=== PATIENT | female | born 1990 | race American Indian/Alaskan Native ===

== ENCOUNTER 2017-03-14 11:11 | Outpatient (CLI) | payer BC, MEDICAID ==
[2017-03-14 11:28] VITALS: BP 131/80
== END 2017-03-14 12:54 | disposition home or self-care (01) ==
LOC: TRG 11:11
PROVIDERS: ATTEND Obstetrics & Gynecology
DX: Z34.93 Encounter for supervision of normal pregnancy, unspecified, third trimester (principal); Z3A.39 39 weeks gestation of pregnancy

== ENCOUNTER 2017-03-15 21:10 | Inpatient (IN) | payer BC ==
[2017-03-15] MEDS ORDERED: PITOCin/NS 20 UNIT/1000ML DRIP 20,000 MILLIUNITS/1,000 ML BAG IV ONE (21:30)
[2017-03-15] MEDS ORDERED: METHERGINE IM ONE ×2 (21:36→22:03)
--- NOTE | 2017-03-15 21:41 | Event Note ---
Date: 03/15/17 Called emergently to the room for patient in labor . Normal vaginal delivery over intact perineum. Mother and in stable condition
--- NOTE | 2017-03-15 21:43 | Procedure Note ---
OB Delivery Note - Delivery Date of Delivery: 03/15/17 Surgeon: KRAIG MCKNIGHT Estimated blood loss: 300cc - Vaginal Delivery presentation: vertex Delivery position: OA Intrapartum events: precipitous labor- <3hr Delivery induction: none Delivery monitor: external FHT Route of delivery: Delivery placenta: spontaneous Episiotomy: none Delivery laceration: 1st degree (not repaired) Anesthesia: none - A at 1 minute: 8 at 5 minutes: 9 Gender: Male (time of delivery 21:21, weight was 7 lbs. 5 oz. or 3306 g)
[2017-03-15] MEDS ORDERED: PITOCin/NS 30 UNIT/500ML 30 UNITS/500 ML BAG IV SCH (22:00)
--- NOTE | 2017-03-15 22:02 | History and Physical Report ---
History of Present Illness Date of examination: 03/15/17 Date of admission: 03/15/17 21:10 History of present illness: 26 yo EDC 03/17/17 @ 39.5 weeks gestation presented to triage C/C and pushing for precipitious viable male at 2120. care uncomplicated and GBS negative. Voiced contractions started yesterday and remained irregular until she felt the urge to push. SROM immediately unpon leaving the house for L&D. Last vaginal exam yesterday, she was 1cm. Past History Past Medical History: no pertinent history Past Surgical History: no surgical history Social history: no significant social history, - Obstetrical History Expected Date of Delivery: 03/17/17 Actual Gestation: 39 Week(s) 5 Day(s) : 2 Para: 1 Number of Living Children: 1 Medications and Allergies Allergies Allergy/AdvReac Type Severity Reaction Status Date / Time No Known Allergies Allergy Unverified 11/23/14 19:57 Home Medications Medication Instructions Recorded Confirmed Last Taken Type Acetaminophen/Codeine [Tylenol #3] 1 tab PO Q4HR PRN #30 tablet 11/26/14 Unknown Rx Ibuprofen [Motrin 600 MG tab] 600 mg PO Q6H #30 tablet 11/26/14 Unknown Rx Review of Systems All systems: negative Genitourinary: normal appearance, vaginal bleeding (scant), leakage of fluid, contractions - Vital Signs Vital signs: Vital Signs Pulse BP 90 115/56 03/15/17 21:39 03/15/17 21:39 Temp Pulse Resp BP Pulse Ox 90 126/64 100 03/15/17 21:55 03/15/17 21:54 03/15/17 21:55 - Physical Exam Abdomen: Positive: normal appearance, other (FF @ U, ML) Genitourinary (Female): Positive: normal external genitalia, other (1st degree laceration, hemostatic, not repaired) Results All other labs normal. Assessment and Plan A: Stable s/p precipitious viable male at 2120 P: Third Stage Labor
[2017-03-15] MEDS ORDERED: MINERAL OIL PO PRN (22:03)
[2017-03-15] MEDS ORDERED: BRETHINE IVP PRN (22:03)
[2017-03-15] MEDS ORDERED: ePHEDrine SULFATE IV PRN (22:03)
[2017-03-15] MEDS ORDERED: BRETHINE SUB-Q PRN (22:03)
[2017-03-15] MEDS ORDERED: PHENERGAN PO PRN (22:05)
[2017-03-15] MEDS ORDERED: TUCKS PAD TP PRN (22:05)
[2017-03-15] MEDS ORDERED: BENADRYL PO PRN (22:05)
[2017-03-15] MEDS ORDERED: PHENERGAN PR PRN (22:05)
[2017-03-15] MEDS ORDERED: LANSINOH TP PRN (22:05)
[2017-03-15] MEDS ORDERED: DULCOLAX PR PRN (22:05)
[2017-03-15] MEDS ORDERED: NORCO 5/325 PO PRN (22:05)
[2017-03-15] MEDS ORDERED: TYLENOL PO PRN (22:05)
[2017-03-15 22:10] LABS: Hematocrit 39.4 % (30.3-42.9); Hemoglobin 13.8 gm/dl (10.1-14.3); Mean Corpuscular HGB Conc 35 % (30-34); Mean Corpuscular Hemoglobin 33 pg (28-32); Mean Corpuscular Volume 94 fl (79-97); Platelet Count 208 K/mm3 (140-440); Red Blood Count 4.21 M/mm3 (3.65-5.03); Red Cell Distribution Width 13.5 % (13.2-15.2); White Blood Count 13.8 K/mm3 (4.5-11.0)
[2017-03-15] MEDS ORDERED: LACTATED RINGERS 1,000 ML IV SCH (23:00)
[2017-03-15] MEDS ORDERED: PITOCin/NS 20 UNIT/1000ML DRIP 20 UNITS/1,000 ML BAG IV SCH (23:00)
[2017-03-15] MEDS ORDERED: SODIUM CHLORIDE FLUSH SYRINGE 10 ML IV PRN (23:00)
[2017-03-15] MEDS: MOTRIN PO SCH (23:34)
[2017-03-16] MEDS: MOTRIN PO SCH (05:37)
--- NOTE | 2017-03-16 08:30 | Progress Note ---
Assessment and Plan A/P PPD #1 s/p precipitous no complaints bleeding decreasing tolerating diet ambulating well continue routine PP Subjective - Subjective Date of service: 03/16/17 Principal diagnosis: s/p precipitous Patient reports: appetite normal, voiding normally, pain well controlled, flatus , ambulating normally : doing well Objective - Vital Signs Latest vital signs: Vital Signs Temp Pulse Resp BP BP Pulse Ox 03/16/17 04:29 98.9 F 82 20 104/59 03/15/17 23:46 98.4 F 75 16 114/71 03/15/17 22:54 69 120/70 03/15/17 22:50 84 98 03/15/17 22:45 79 97 03/15/17 22:40 74 97 03/15/17 22:39 80 117/61 03/15/17 22:35 88 97 03/15/17 22:30 83 97 03/15/17 22:25 81 98 03/15/17 22:24 83 116/66 03/15/17 22:20 79 98 03/15/17 22:15 84 99 03/15/17 22:10 81 99 03/15/17 22:09 73 120/62 03/15/17 22:05 83 99 03/15/17 22:00 87 99 03/15/17 21:55 90 100 03/15/17 21:54 95 H 126/64 03/15/17 21:50 94 H 100 03/15/17 21:45 87 99 03/15/17 21:40 98.0 F 20 03/15/17 21:39 90 115/56 Intake and Output 03/15/17 03/16/17 03/16/17 23:59 07:59 15:59 Intake Total 200 Output Total 300 500 Balance -300 -300 Intake: Oral 200 Output: Urine 300 500 Void 300 500 Other: Total, Intake Amount 200 Total, Output Amount 300 500 Weight 79.832 kg Estimated Blood Loss 300 - Exam Breasts: Present: normal Cardiovascular: Present: Regular rate, Normal S1 Lungs: Present: Clear to auscultation, Normal air movement Abdomen: Present: normal appearance, soft, normal bowel sounds. Absent: distention, tenderness, guarding Vulva: both: normal Uterus: Present: normal, firm, fundal height below umbilicus. Absent: bogginess , tenderness Extremities: Present: normal Deep Tendon Reflex Grade: Normal +2 - Labs Labs: Abnormal lab results 03/15/17 Range/Units 21:25 WBC 13.8 H (4.5-11.0) K/mm3 MCH 33 H (28-32) pg MCHC 35 H (30-34) %
--- NOTE | 2017-03-16 08:39 | Discharge Summary ---
Providers - Providers Date of Admission: 03/15/17 21:10 Date of discharge: 03/17/17 Attending physician: GABBIE LIRA Primary care physician: GABBIE LIRA Hospitalization Reason for admission: active labor Delivery: Episiotomy: none Laceration: 1st degree (not repaired) Other procedures: none complications: none baby: male Hospital course: patient had a precipitous delivery. male infant 1st degree lac. Doing well. d/c home PPD #2 Condition at discharge: Good Disposition: DC-01 TO HOME OR SELFCARE Plan - Discharge Medications Prescriptions: HYDROcodone/APAP 5-325 [[place] 5/325] 1 each PO Q6HR PRN #30 tablet PRN Reason: Pain Ibuprofen [Motrin] 600 mg PO Q8H PRN #30 tablet PRN Reason: Pain - Provider Discharge Summary Activity: routine, no sex for 6 weeks, no strenuous exercise Diet: routine Instructions: routine Additional instructions: [] Smoking cessation referral if applicable(refer to patient education folder for contact #) [] Refer to [facility]'s [facility] Booklet Call your doctor immediately for: * Fever > 100.5 * Heavy vaginal bleeding ( >1 pad per hour) * Severe persistent headache * Shortness of breath * Reddened, hot, painful area to leg or breast * Drainage or odor from incision. * Keep incision clean and dry at all times and follow doctor's instructions regarding bathing/showering - Follow up plan Follow up: GABBIE LIRA MD [Primary Care Provider] - 04/12/17
[2017-03-16] MEDS ORDERED: PRENATAL VITAMIN PO SCH (10:00)
[2017-03-16 10:59] LABS: Hematocrit 34.2 % (30.3-42.9); Hemoglobin 11.6 gm/dl (10.1-14.3)
[2017-03-16] MEDS ORDERED: M-M-R II VACCINE SUB-Q ONE (22:05)
[2017-03-17] MEDS: MOTRIN PO SCH ×3 (00:07→12:52)
[2017-03-17 09:21] VITALS: BP 103/58
== END 2017-03-17 15:00 | disposition home or self-care (01) | DRG 775 ==
LOC: LD 21:10 → OB 23:30
PROVIDERS: ADMIT Obstetrics & Gynecology; ATTEND Obstetrics & Gynecology
PROC: 10E0XZZ Delivery of Products of Conception, External Approach (ICD-10-PCS; principal; 2017-03-15)
DX: O62.3 Precipitate labor (principal); Z3A.39 39 weeks gestation of pregnancy; Z37.0 Single live birth; O70.0 First degree perineal laceration during delivery
CPT/HCPCS: 36415; 85014; 85018; 85027; 86592; 86850; 86900; 86901; 99211; G0463; J2210; J2590

== ENCOUNTER 2020-09-29 17:00 | Inpatient (IN) | payer BC ==
[2020-09-29] MEDS ORDERED: LACTATED RINGERS 1,000 ML ONE (19:22)
[2020-09-29 19:42] LABS: Hematocrit 36.1 % (30.3-42.9); Hemoglobin 12.6 gm/dl (10.1-14.3); Mean Corpuscular HGB Conc 35 % (30-34); Mean Corpuscular Volume 94 fl (79-97); Platelet Count 201 K/mm3 (140-440); Red Blood Count 3.84 M/mm3 (3.65-5.03)
[2020-09-29] MEDS ORDERED: MINERAL OIL 30 ML ORAL LIQD PO PRN (20:25)
[2020-09-29] MEDS ORDERED: ePHEDrine SULFATE 50 MG/1 ML INJ IV PRN (20:25)
[2020-09-29] MEDS ORDERED: DINOPROSTONE 10 MG VAG SUPP VG ONE (20:25)
[2020-09-29] MEDS ORDERED: LIDOCAINE (2%) 20 MG/1 ML VIAL 20 ML MDV INFILTRATI ONE (20:25)
[2020-09-29] MEDS ORDERED: TERBUTALINE 1 MG/1 ML INJ SUB-Q PRN (20:25)
[2020-09-29] MEDS ORDERED: OXYTOCIN DRIP 30 UNITS/500 ML BAG IV SCH ×2 (21:00)
--- NOTE | 2020-09-29 21:57 | History and Physical Report ---
History of Present Illness Date of examination: 09/29/20 Chief complaint: decreased movement History of present illness: 29yo at 40w1d, initiated care at 11.1 wks gestation. has been complicated by anemia, sickle cell trait, and 22q11 deletion syndrome. She presents to [facility] from clinic due to symptoms of severe pain and decreased movement. Denies VB or LOF. Labs: O+, antibody negative; rubella immune; VDRL non-reactive; urine culture negative; HBsAg negtive; HSV-2 negative; Gc/Chlamydia/Trich negative; 1hr gtt - 84; GBS negative. Past History Past Medical History: no pertinent history, other (sickle cell trait) Past Surgical History: no surgical history Family/Genetic History: diabetes, hypertension - Obstetrical History Expected Date of Delivery: 09/28/20 Actual Gestation: 40 Week(s) 2 Day(s) : 3 Number of Living Children: 2 Medications and Allergies Allergies Allergy/AdvReac Type Severity Reaction Status Date / Time No Known Allergies Allergy Verified 09/29/20 19:39 Home Medications Medication Instructions Recorded Confirmed Last Taken Type Acetaminophen/Codeine [Tylenol #3] 1 tab PO Q4HR PRN #30 tablet 11/26/14 09/29/20 Unknown Rx Ibuprofen [Motrin 600 MG tab] 600 mg PO Q6H #30 tablet 11/26/14 09/29/20 Unknown Rx HYDROcodone/APAP 5-325 [[place] 1 each PO Q6HR PRN #30 tablet 03/16/17 09/29/20 Unknown Rx 5/325] Ibuprofen [Motrin] 600 mg PO Q8H PRN #30 tablet 03/16/17 09/29/20 Unknown Rx One Daily Tablet 1 tab PO DAILY 09/29/20 09/29/20 09/28/20 History 1 Active Meds: Active Medications Ephedrine Sulfate (Ephedrine Sulfate 50 Mg/1 Ml Inj) 10 mg IV Q2M PRN PRN Reason: Hypotension Oxytocin/Sodium Chloride (Pitocin/Ns 30 Unit/500ml) 30 units in 500 mls @ 2 mls/hr IV TITR WILL; Protocol Lactated Ringer's (Lactated Ringers) 1,000 mls @ 125 mls/hr IV DIRECT WILL Oxytocin/Sodium Chloride (Pitocin/Ns 30 Unit/500ml) 30 units in 500 mls @ 40 mls/hr IV TITR WILL; Protocol Mineral Oil (Mineral Oil 30 Ml Oral Liqd) 30 ml PO QHS PRN PRN Reason: Constipation Terbutaline Sulfate (Terbutaline 1 Mg/1 Ml Inj) 0.25 mg SUB-Q ONCE PRN PRN Reason: Hyperstimulation/Hypertonicity Review of Systems Gastrointestinal: other (flank pain) - Vital Signs Vital signs: Vital Signs Pulse Pulse Ox 98 H 98 09/29/20 17:39 09/29/20 17:39 Temp Pulse Resp BP Pulse Ox 97.8 F 76 20 128/70 98 09/29/20 19:06 09/29/20 21:49 09/29/20 19:06 09/29/20 17:42 09/29/20 21:49 - Physical Exam Cardiovascular: Regular rate Lungs: Positive: Clear to auscultation Abdomen: Positive: normal appearance Genitourinary (Female): Positive: normal external genitalia Uterus: Positive: other (gravid) - Obstetrical FHR: category 1 FHR comments: 130 Cervical Dilatation: 1 station: -3 Uterine Contraction Pattern: Irregular Uterine Contraction Intensity: Mild Results Result Diagrams: 09/29/20 19:16 Abnormal lab results 09/29/20 Range/Units 19:16 MCH 33 H (28-32) pg MCHC 35 H (30-34) % All other labs normal. 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
[2020-09-30] MEDS ORDERED: ACETAMINOPHEN 500 MG TAB PO PRN (00:13)
[2020-09-30] MEDS: LACTATED RINGERS 1,000 ML IV SCH ×3 (03:50→22:05)
--- NOTE | 2020-09-30 18:44 | Progress Note ---
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 has been complicated by anemia, sickle cell trait, and 22q11 deletion syndrome. She presents to [facility] from clinic due to symptoms of severe pain and decreased movement. Denies VB or LOF. Labs: O+, antibody negative; rubella immune; VDRL non-reactive; urine culture negative; HBsAg negtive; HSV-2 negative; Gc/Chlamydia/Trich negative; 1hr gtt - 84; GBS negative. Patient reports: new complaints, loss of fluid, movement normal, contractions, no vaginal bleeding Objective - Vital Signs Vital Signs: Vital Signs - 12hr 09/30/20 09/30/20 09/30/20 06:44 06:49 06:54 Temperature Pulse Rate 72 77 72 Respiratory Rate Blood Pressure Blood Pressure [Left] O2 Sat by Pulse 99 99 99 Oximetry 09/30/20 09/30/20 09/30/20 06:59 07:04 07:09 Temperature Pulse Rate 70 76 74 Respiratory Rate Blood Pressure Blood Pressure [Left] O2 Sat by Pulse 100 99 99 Oximetry 09/30/20 09/30/20 09/30/20 07:14 07:19 07:24 Temperature Pulse Rate 73 70 70 Respiratory Rate Blood Pressure Blood Pressure [Left] O2 Sat by Pulse 99 99 99 Oximetry 09/30/20 09/30/20 09/30/20 07:29 07:34 07:39 Temperature Pulse Rate 75 75 75 Respiratory Rate Blood Pressure Blood Pressure [Left] O2 Sat by Pulse 99 99 99 Oximetry 09/30/20 09/30/20 09/30/20 07:44 07:49 07:54 Temperature Pulse Rate 76 74 78 Respiratory Rate Blood Pressure Blood Pressure [Left] O2 Sat by Pulse 99 98 98 Oximetry 09/30/20 09/30/20 09/30/20 07:59 08:04 08:09 Temperature Pulse Rate 72 70 74 Respiratory Rate Blood Pressure Blood Pressure [Left] O2 Sat by Pulse 99 100 98 Oximetry 09/30/20 09/30/20 09/30/20 08:14 08:19 08:24 Temperature Pulse Rate 75 73 70 Respiratory Rate Blood Pressure Blood Pressure [Left] O2 Sat by Pulse 98 98 100 Oximetry 09/30/20 09/30/20 09/30/20 08:29 08:34 08:39 Temperature Pulse Rate 76 70 73 Respiratory Rate Blood Pressure Blood Pressure [Left] O2 Sat by Pulse 98 98 99 Oximetry 09/30/20 09/30/20 09/30/20 08:44 08:48 08:49 Temperature 98.0 F Pulse Rate 66 79 76 Respiratory 18 Rate Blood Pressure Blood Pressure 109/71 [Left] O2 Sat by Pulse 100 100 Oximetry 09/30/20 09/30/20 09/30/20 08:52 08:54 08:59 Temperature Pulse Rate 80 77 80 Respiratory Rate Blood Pressure 109/71 Blood Pressure [Left] O2 Sat by Pulse 100 98 Oximetry 09/30/20 09/30/20 09/30/20 09:04 09:21 09:26 Temperature Pulse Rate 81 75 81 Respiratory Rate Blood Pressure Blood Pressure [Left] O2 Sat by Pulse 99 100 100 Oximetry 09/30/20 09/30/20 09/30/20 09:31 09:36 09:41 Temperature Pulse Rate 75 76 84 Respiratory Rate Blood Pressure Blood Pressure [Left] O2 Sat by Pulse 100 100 100 Oximetry - Exam Breasts: deferred Cardiovascular: Regular rate Lungs: Normal air movement FHR: category 1 Uterine Contraction Monitor Mode: External (Eda) Cervical Dilatation: 4.5 (vertex) Cervical Effacement Percentage: 60 (Pitocin @ 4mu/min) station: -3 Uterine Contraction Frequency (min): 2-4 Uterine Contraction Pattern: Irregular Uterine Tone Measurement Phase: Resting Uterine Contraction Intensity: Moderate Extremities: normal - Labs Labs: Abnormal Labs 09/29/20 19:16 MCH 33 H MCHC 35 H Laboratory Results - last 24 hr 09/29/20 09/29/20 09/29/20 19:16 19:16 20:30 WBC 7.1 RBC 3.84 Hgb 12.6 Hct 36.1 MCV 94 MCH 33 H MCHC 35 H RDW 14.0 Plt Count 201 Syphilis IgG Antibody Nonreactive Coronavirus (PCR) Blood Type O POSITIVE Antibody Screen Negative 09/30/20 08:37 WBC RBC Hgb Hct MCV MCH MCHC RDW Plt Count Syphilis IgG Antibody Coronavirus (PCR) Negative Blood Type Antibody Screen
[2020-09-30] MEDS: BUTORPHANOL 2 MG/1 ML INJ IV PRN (21:08)
[2020-10-01] MEDS: BUTORPHANOL 2 MG/1 ML INJ IV PRN (01:02)
[2020-10-01] MEDS ORDERED: MAGNESIUM HYDROXIDE (MOM) ORAL LIQD UDC PO PRN (01:06)
[2020-10-01] MEDS ORDERED: WITCH HAZEL/ GLYCERIN PAD TP PRN (01:06)
[2020-10-01] MEDS ORDERED: diphenhydrAMINE 25 MG CAP PO PRN (01:06)
[2020-10-01] MEDS ORDERED: LANOLIN/ZINC/DIMETHICONE (LANSINOH) 7 GM TP PRN (01:06)
[2020-10-01] MEDS ORDERED: ACETAMINOPHEN 325 MG TAB PO PRN (01:06)
[2020-10-01] MEDS ORDERED: PROMETHAZINE 25 MG TAB PO PRN (01:06)
[2020-10-01] MEDS ORDERED: ONDANSETRON 4 MG/2 ML INJ IV PRN (01:06)
--- NOTE | 2020-10-01 01:15 | Procedure Note ---
OB Delivery Note - Delivery Date of Delivery: 10/01/20 (0049) Surgeon: IRINEO NOLASCO (CNM) Estimated blood loss: 300cc - Vaginal Delivery presentation: vertex Delivery position: OA (DAVID) Delivery induction: oxytocin Delivery augmentation: rupture of membranes (SROM - 1525 on 09/30/20, clear) Delivery monitor: external FHT, external uterine Route of delivery: Delivery placenta: spontaneous (52) Delivery cord: 3 umbilical vessels Episiotomy: none Delivery laceration: none Anesthesia: none Delivery comments: of viable, quiet, slightly stunned placed directly to maternal abdomen. NICU at bedside for delivery. Cord double clamped and cut by myself and immediately handed over to awaiting NICU team for evaluation. Cord blood collected, sent to lab. Uterus firm @ U-3, hemostasis maintained. Perineum intact. Mother stable, safe and left in care of RN. transported to NICU accompanied by FOB. - A at 1 minute: 8 at 5 minutes: 8 Infant Gender: Male (Weight: 3445 gms (7lbs 10ozs) 20 inches)
[2020-10-01] MEDS: IBUPROFEN 600 MG TAB PO SCH ×3 (06:23→17:44)
--- NOTE | 2020-10-01 08:58 | Progress Note ---
Assessment and Plan - Patient Problems (1) Vaginal delivery Current Visit: Yes Status: Acute Plan to address problem: patient doing well Subjective - Subjective Date of service: 10/01/20 Principal diagnosis: IOL Interval history: Patient feels tired from the delivery. Pain well controlled Patient reports: appetite normal, voiding normally, pain well controlled [place]: doing well Objective - Vital Signs Latest vital signs: Vital Signs Temp Pulse Resp BP BP Pulse Ox 10/01/20 03:15 98.1 F 68 16 107/63 99 10/01/20 02:30 97.7 F 10/01/20 02:23 64 124/72 10/01/20 02:08 66 123/64 10/01/20 01:52 179 H 142/77 10/01/20 00:54 78 122/56 10/01/20 00:41 85 139/63 10/01/20 00:38 98 H 99 10/01/20 00:33 121 H 94 10/01/20 00:32 83 92 10/01/20 00:28 123 H 99 10/01/20 00:24 78 92 10/01/20 00:23 77 97 09/30/20 23:15 97.1 F L 73 116/64 09/30/20 19:15 97.9 F 82 18 134/77 09/30/20 19:11 82 134/77 09/30/20 11:23 69 L 09/30/20 09:41 84 100 09/30/20 09:36 76 100 09/30/20 09:31 75 100 09/30/20 09:26 81 100 09/30/20 09:21 75 100 09/30/20 09:04 81 99 09/30/20 08:59 80 98 Intake and Output 09/30/20 10/01/20 10/01/20 22:59 06:59 14:59 Intake Total 1042.967 Output Total 600 Balance 1042.967 -600 Intake: IV 1042.967 Lactated Ringers 1,000 ml 1000 @ 125 mls/hr IV DIRECT WILL Rx#:[id number] PITOCin/NS 30 UNIT/500ML 42.967 30 units In 500 ml @ 2 mls/hr IV TITR WILL Rx#: [id number] Output: Urine 600 Void 600 Other: Total, Output Amount 600 # Voids Void 1 Estimated Blood Loss 300
[2020-10-01] MEDS: PRENATAL VIT27-FE FUMARATE-FOLIC ACID VIT TAB PO SCH (10:19)
[2020-10-01 13:31] LABS: Hematocrit 32.6 % (30.3-42.9)
[2020-10-02] MEDS: IBUPROFEN 600 MG TAB PO SCH ×3 (07:29→12:20)
[2020-10-02] MEDS: PRENATAL VIT27-FE FUMARATE-FOLIC ACID VIT TAB PO SCH (10:23)
--- NOTE | 2020-10-02 11:04 | Progress Note ---
Assessment and Plan - Patient Problems (1) Vaginal delivery Current Visit: Yes Status: Acute Plan to address problem: discharge home patient doing well Subjective - Subjective Date of service: 10/02/20 Principal diagnosis: IOL Interval history: Patient doing well. No complaints Patient reports: appetite normal, voiding normally, pain well controlled : doing well Objective - Vital Signs Latest vital signs: Vital Signs Temp Pulse Resp BP Pulse Ox 10/02/20 01:07 98.3 F 82 20 106/59 98 10/01/20 17:34 98.2 F 85 18 106/69 100 Intake and Output 10/01/20 10/02/20 10/02/20 22:59 06:59 14:59 Other: # Voids Void 1
--- NOTE | 2020-10-02 11:05 | Discharge Summary ---
Providers - Providers Date of Admission: 09/29/20 20:25 Date of discharge: 10/02/20 Attending physician: DANIEL REAGAN MD Primary care physician: DANIEL REAGAN MD Hospitalization Reason for admission: induction of labor Delivery: Discharge diagnosis: IUP at term delivered Hospital course: Patient admitted for decreased movement. Had . uncomplicated Condition at discharge: Good Disposition: DC-01 TO HOME OR SELFCARE - Discharge Diagnoses (1) Vaginal delivery Status: Acute Plan - Discharge Medications Prescriptions: Ibuprofen [Motrin] 800 mg PO Q8HR PRN #30 tablet PRN Reason: Pain , Severe (7-10) HYDROcodone/APAP 5-325 [[place] 5/325] 1 each PO Q6HR PRN #15 tablet PRN Reason: Pain - Provider Discharge Summary Activity: no sex for 6 weeks, no heavy lifting 4 weeks, no strenuous exercise Diet: routine Instructions: routine Additional instructions: [] Smoking cessation referral if applicable(refer to patient education folder for contact #) [] Refer to [facility]'s [facility] Booklet Call your doctor immediately for: * Fever > 100.5 * Heavy vaginal bleeding ( >1 pad per hour) * Severe persistent headache * Shortness of breath * Reddened, hot, painful area to leg or breast * schedule visit in 4 weeks - Follow up plan
[2020-10-02 18:44] VITALS: BP 105/63
== END 2020-10-02 18:15 | disposition home or self-care (01) | DRG 807 ==
LOC: TRG 17:00 → APU 17:01 → LD 19:10 → TRG 20:25 → LD 20:25 → OB 10-01 03:00
PROVIDERS: ADMIT Obstetrics & Gynecology; ATTEND Obstetrics & Gynecology
PROC: 10E0XZZ Delivery of Products of Conception, External Approach (ICD-10-PCS; principal; 2020-10-01)
PROC: 3E033VJ Introduction of Other Hormone into Peripheral Vein, Percutaneous Approach (ICD-10-PCS; 2020-10-01)
DX: O76 Abnormality in fetal heart rate and rhythm complicating labor and delivery (principal); Z37.0 Single live birth; O99.02 Anemia complicating childbirth; Z3A.40 40 weeks gestation of pregnancy; D57.3 Sickle-cell trait; Z20.822 Contact with and (suspected) exposure to COVID-19; O35.1XX0 Maternal care for (suspected) chromosomal abnormality in fetus, not applicable or unspecified
CPT/HCPCS: 36415; 59025; 59200; 85014; 85018; 85027; 86592; 86850; 86900; 86901; 96361; 96374; 96376; 99211; G0378; G0463; J0595; J2590; J7120; U0003